=== PATIENT | female | born 1955 | race Caucasian/White ===

== ENCOUNTER → 2018-04-12 | Outpatient (CLI) | payer BC ==
[~2018-04-12] MED LIST: ALBU17AE23 IH; AMOX500C2 PO; CHOL10003 PO; CYAN10007 PO; INSU100V11 SQ; INSU100V13 SQ; KETO-22 PO; MULT-608 PO; OLME1TAB25 PO; OMEG-12 PO; OXYC-309 PO; PRD20T PO
== END ==
LOC: PREOP 05:29
PROVIDERS: ATTEND Surgery
DX: Z01.818 Encounter for other preprocedural examination (principal)

== ENCOUNTER 2021-03-16 10:57 | Outpatient (CLI) | payer BC ==
[~2021-03-16] VITALS: Ht 162.6 cm; Wt 122.7 kg
[2021-03-16] MEDS ORDERED: INSN1U SQ (12:08)
[2021-03-16] MEDS ORDERED: LEVO125C4 PO (12:08)
[2021-03-16] MEDS ORDERED: INSU100V31 SQ (12:08)
[2021-03-16] MEDS ORDERED: OLME-11 PO (12:08)
== END 2021-03-16 12:15 | disposition home or self-care (01) ==
LOC: PREOP 10:57
PROVIDERS: ATTEND Surgery
DX: Z01.818 Encounter for other preprocedural examination (principal)

== ENCOUNTER 2021-03-18 08:41 | Day surgery (SDC) | payer BC ==
[~2021-03-18] VITALS: Ht 162.6 cm; Wt 122.7 kg
[2021-03-18] VITALS (10 sets, daily range): BP systolic 99–143; BP diastolic 50–82
[~2021-03-18 08:41] MED LIST changes: +INSN1U SQ; +INSU100V31 SQ; +LEVO125C4 PO; +OLME-11 PO
[2021-03-18] MEDS ORDERED: ceFAZolin 2 GM IV Premixed 50 ML IV ONE (09:00)
[2021-03-18] MEDS: LACTATED RINGERS 1,000 ML IV PRN ×2 (09:30→11:02)
--- NOTE | 2021-03-18 10:07 | Progress Note-Pre Operative ---
Pre-Operative Progress Note H&P Reviewed The H&P was reviewed, patient examined and no changes noted. Date Seen by Provider: Mar 18, 2021 Time Seen by Provider: 10:00 Date H&P Reviewed: Mar 18, 2021 Time H&P Reviewed: 10:00 Pre-Operative Diagnosis: ventral abd incisional hernia x2 ESVIN ANNE MD Mar 18, 2021 10:07
[2021-03-18 10:09] LABS: BASOPHILS # (AUTO) 0.1 10^3/uL (0.0-0.1); BASOPHILS % (AUTO) 1 % (0-10); EOSINOPHILS # (AUTO) 0.3 10^3/uL (0.0-0.3); EOSINOPHILS % (AUTO) 2 % (0-10); HEMATOCRIT 45 % (35-52); HEMOGLOBIN 13.4 g/dL (11.5-16.0); LYMPHOCYTES # (AUTO) 2.5 10^3/uL (1.0-4.0); LYMPHOCYTES % (AUTO) 22 % (12-44); MEAN CORPUSCULAR HEMOGLOBIN 28 pg (25-34); MEAN CORPUSCULAR HGB CONC 30 g/dL (32-36); MEAN CORPUSCULAR VOLUME 92 fL (80-99); MEAN PLATELET VOLUME 8.8 fL (9.0-12.2); MONOCYTES # (AUTO) 0.5 10^3/uL (0.0-1.0); MONOCYTES % (AUTO) 5 % (0-12); NEUTROPHILS # (AUTO) 7.8 10^3/uL (1.8-7.8); NEUTROPHILS % (AUTO) 70 % (42-75); PLATELET COUNT 284 10^3/uL (130-400); WHITE BLOOD COUNT 11.1 10^3/uL (4.3-11.0)
[2021-03-18] MEDS ORDERED: ACHYD1T PO (10:09)
--- NOTE | 2021-03-18 10:09 | Discharge Inst-Surgical ---
D/C Lap Instructions-DAYANA New, Converted, or Re-Newed RX: RX on Chart Follow Up Appt in 2 weeks Activity as tolerated No driving for 24 hours No driving while on pain medications Incentive Spirometry use every 2 hours while awake Regular Diet Symptoms to Report: Fever over 101 degree F, Nausea/Vomiting Infection Signs and Symptoms to report: Increased redness, Foul odor of wound, Increased drainage Bathing instructions: May shower Operative Area Clean/Dry; Keep incision clean/dry If any problems/questions: Contact your physician or go to Emergency Room ESVIN ANNE MD Mar 18, 2021 10:09
[2021-03-18] MEDS ORDERED: ONDANSETRON 4 MG/2 ML (SDV) Z0FRAN IVP PRN ×2 (10:15→12:15)
[2021-03-18] MEDS ORDERED: oxyCODONE/APAP 5/325MG (PERCOCET 5) TABLET PO PRN (10:15)
[2021-03-18] MEDS ORDERED: ACETAMINOPHEN 325 MG TABLET PO PRN (10:15)
[2021-03-18] MEDS ORDERED: fentaNYL INJ 100 MCG/2 ML AMP IVP PRN (10:15)
--- NOTE | 2021-03-18 11:41 | Progress Note-Post Operative ---
Post-Operative Progess Note Surgeon (s)/Plant Maintenance Manager (s) Surgeon ESVIN ANNE MD Plant Maintenance Manager: trisha christianson HIRED HELP Pre-Operative Diagnosis ventral abd incisional hernia x2 Post-Operative Diagnosis midline ventral abd incisional hernia(2.5cm), lipoma RUQ abd wall. Procedure & Operative Findings Date of Procedure 03/18/21 Procedure Performed/Findings ventral abd incisional hernia repair with mesh. excision lipoma subcutaneous abd wall (2cm). Anesthesia Type get with local Estimated Blood Loss Estimated blood loss (mL): minimal Specimens/Packing Specimens Removed hernia sac, lipoma abd wall ESVIN ANNE MD Mar 18, 2021 11:41
[2021-03-18] MEDS ORDERED: RT-ALBUTEROL SULF 2.5 MG/3 ML PRE-MIX VIAL ONE (12:05)
[2021-03-18] MEDS ORDERED: fentaNYL INJ 100 MCG/2 ML AMP IVP ONE (12:15)
[2021-03-18] MEDS ORDERED: RT-ALBUTEROL SULF 2.5 MG/3 ML PRE-MIX VIAL INH ONE (12:15)
[2021-03-18] MEDS ORDERED: HYDROmorphone 2 MG/ML VIAL (DILAUDID) IV ONE (12:15)
[2021-03-18] MEDS ORDERED: HYDROmorphone 2 MG/ML VIAL (DILAUDID) ONE (12:39)
--- NOTE | 2021-03-18 12:49 | Anesthesia-General Post-Op ---
General Patient Condition Mental Status/LOC: Same as Preop Cardiovascular: Satisfactory Nausea/Vomiting: Absent Respiratory: Satisfactory Pain: Controlled Complications: Absent Post Op Complications Complications None Follow Up Care/Instructions Patient Instructions None needed. Anesthesia/Patient Condition Patient Condition Patient is doing well, no complaints, stable vital signs, no apparent adverse anesthesia problems. PATSY FORD DO Mar 18, 2021 12:49
[2021-03-18] MEDS ORDERED: oxyCODONE/APAP 5/325MG (PERCOCET 5) TABLET ONE (14:24)
--- NOTE | 2021-03-18 17:28 | OPERATIVE REPORT ---
DATE OF SERVICE: 03/18/2021 ATTENDING PRIMARY CARE PHYSICIAN: [facility]. PREOPERATIVE DIAGNOSES: Symptomatic incarcerated ventral abdominal incisional hernia, pain in the right upper abdominal quadrant from a previous incision. POSTOPERATIVE DIAGNOSES: Midline supraumbilical ventral abdominal incisional incarcerated hernia and lipoma right upper abdominal wall subcutaneous, 2 cm in size. PROCEDURES PERFORMED: Incarcerated ventral abdominal incisional hernia repair with mesh, excision lipoma subcutaneous tissue abdominal wall 2 cm in size. SURGEON: Esvin Anne MD. PROGRAM SUPERVISOR: Henrik Schmid APRN. ANESTHESIA: General endotracheal with local. ESTIMATED BLOOD LOSS: Minimal. FINDINGS: Midline supraumbilical ventral abdominal incisional incarcerated hernia and lipoma right upper abdominal wall subcutaneous 2 cm in size. DISPOSITION: The patient tolerated the procedure well. INDICATIONS FOR PROCEDURE: The patient is a 65-year-old female, who was referred over to us for abdominal pain. She reports that she has had pain in the supraumbilical region and noticed this approximately six months ago, which increased in size and became painful to palpation. A CT scan was performed, which showed a recurrent ventral abdominal incisional hernia in the supraumbilical region. She also had pain in the right upper abdominal quadrant along the previous port incision site with a palpable mass. DESCRIPTION OF PROCEDURE: The patient was brought to the operating room and laid supine on the table. After adequate IV pain and sedative medications and general endotracheal intubation, the abdomen was prepped and draped in a standard surgical fashion. A 0.5% Marcaine with epinephrine was then used to anesthetize the overlying skin on the left upper abdominal quadrant and a transverse skin incision was made using a 15 blade. The area in the supraumbilical region was then anesthetized using 0.5% Marcaine with epinephrine. A vertical skin incision was made along the previous scar using a 15 blade. Subcutaneous tissue was then dissected down using electrocautery. The hernia sac was identified and completely dissected out using Metzenbaum scissors as well as electrocautery until the fascial base was identified. The hernia sac was then opened using Metzenbaum scissors and completely excised under direct visualization using an electrocautery. There was a significant amount of adhesion tissue and this was consistent with a sliding type of incisional hernia that was incarcerated. We then proceeded to take down the adhesion tissue along the small bowel as well as along the anterior abdominal wall using Metzenbaum scissors with visualization of good hemostasis. The defect was approximately 2.5 cm in size and an 8 cm coated polypropylene mesh was placed into the defect and sutured transfascially to the mesh using interrupted 0 Prolene sutures. The subcutaneous tissue was then reapproximated using 3-0 Vicryl interrupted sutures. Skin was closed using 4-0 Monocryl running subcuticular suture. Wound was then cleaned and covered with Dermabond. The area was then covered with tonsil sponges followed by 4 x 4 gauze followed by large Op-Site followed by abdominal binder. We then proceeded with exploration of the right upper abdominal quadrant pain and bulge and a transverse skin incision was made after the skin was anesthetized using 0.5% Marcaine with epinephrine. Subcutaneous tissue was then dissected down. Under palpation, there was no hernia identified, only a lipoma in the subcutaneous tissue, which was fully excised using electrocautery. The size of the lipoma was 2.5 cm in size. The subcutaneous tissue was then reapproximated using 3-0 Vicryl interrupted suture. Skin was closed using 4-0 Monocryl running subcuticular suture. Wound was then cleaned and covered with Dermabond. The patient tolerated the procedure well. We will start IV normal pain medication as well as a clear liquid diet. When she is tolerating clears, has good pain control with oral pain medications, and ambulating well, we will discharge her home. She will be instructed to do no heavy lifting or exertion for the next six weeks. Job ID: [id number] DocumentID: [id number] Dictated Date: 03/18/2021 11:50:42 Global Director [employer] And Climate Change Date: 03/18/2021 17:27:24 Dictated By: ESVIN ANNE MD [facility]
== END 2021-03-18 14:30 | disposition home or self-care (01) ==
LOC: SDC 08:41
PROVIDERS: ATTEND Surgery
DX: D17.1 Benign lipomatous neoplasm of skin and subcutaneous tissue of trunk (principal); K43.2 Incisional hernia without obstruction or gangrene; I10 Essential (primary) hypertension; K21.9 Gastro-esophageal reflux disease without esophagitis; E03.9 Hypothyroidism, unspecified; E66.01 Morbid (severe) obesity due to excess calories; E11.40 Type 2 diabetes mellitus with diabetic neuropathy, unspecified; Z79.4 Long term (current) use of insulin; Z79.890 Hormone replacement therapy; Z79.899 Other long term (current) drug therapy; Z88.8 Allergy status to other drugs, medicaments and biological substances; Z88.5 Allergy status to narcotic agent; Z90.49 Acquired absence of other specified parts of digestive tract; Z79.891 Long term (current) use of opiate analgesic; Z87.19 Personal history of other diseases of the digestive system; Z98.890 Other specified postprocedural states
CPT/HCPCS: 22902; 49561; 49568; 82947; 85025; 87081; C1781; 36415